=== PATIENT | female | born 1975 | race Caucasian/White ===

== ENCOUNTER 2019-03-14 16:13 | Emergency (ER) | payer OTHER ==
[~2019-03-14] VITALS: Ht 160 cm; Wt 63.5 kg
[~2019-03-14 16:13] MED LIST: DOLOGEN CAPLET1 TAB PO; MEDROL4 MG PO
== END 2019-03-14 20:11 | disposition home or self-care (01) ==
LOC: ER 16:13
DX: O26.891 Other specified pregnancy related conditions, first trimester (principal); M54.2 Cervicalgia; Z34.02 Encounter for supervision of normal first pregnancy, second trimester